=== PATIENT | female | born 1995 ===

== ENCOUNTER 2018-03-08 14:19 | Emergency (ER) | payer MEDICAID, OTHER ==
[2018-03-08 14:20] VITALS: BMI 28.3
[2018-03-08 14:36] VITALS: TEMP 98.8; O2SAT 98
--- NOTE | 2018-03-08 17:44 | CT ---
Date of service: 03/08/2018 PROCEDURE: CT HEAD WITHOUT CONTRAST. HISTORY: right facial weakness/numbness x 3 d COMPARISON: 03/26/2014 TECHNIQUE: Axial computed tomography images were obtained through the head/brain without intravenous contrast. Supplemental Coronal and Sagittal projections created and reviewed. Radiation dose: Total exam DLP = 1033.78 mGy-cm. This CT exam was performed using one or more of the following dose reduction techniques: Automated exposure control, adjustment of the mA and/or kV according to patient size, and/or use of iterative reconstruction technique. FINDINGS: HEMORRHAGE: No intracranial hemorrhage. BRAIN: No mass effect or edema. No atrophy or chronic microvascular ischemic changes. VENTRICLES: Unremarkable. No hydrocephalus. CALVARIUM: Unremarkable. PARANASAL SINUSES: Unremarkable as visualized. No significant inflammatory changes. MASTOID AIR CELLS: Unremarkable as visualized. No inflammatory changes. OTHER FINDINGS: None. IMPRESSION: No acute intracranial abnormalities. No significant findings to account for the clinical presentation.
--- NOTE | 2018-03-08 18:42 | C.PDOC ---
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 Patient denies fever, chills, or recent illnesses. Patient states that her current symptoms feel similar to prior symptoms from a similar episode in 2015. Patient states that she failed to follow-up with a neurologist at that time. Time Seen by Provider: 03/08/18 14:51 Chief Complaint (Nursing): Weakness/Neurological Deficit History Per: Patient History/Exam Limitations: no limitations Onset/Duration Of Symptoms: Days (3) Current Symptoms Are (Timing): Still Present Past Medical History Reviewed: Historical Data, Nursing Documentation, Vital Signs Vital Signs: Last Vital Signs Temp 98.8 F 03/08/18 14:30 Pulse 96 H 03/08/18 14:30 Resp 18 03/08/18 14:30 BP 107/75 03/08/18 14:30 Pulse Ox 98 03/08/18 14:30 - Medical History PMH: Fractures, Kidney Stones, Chronic Kidney Disease Other PMH: Verde's Palsy Surgical History: Tonsillectomy - [facility] Procedures APPLICATION OF SPLINT (11/13/13) OP RED-INT FIX METAC/CAR (11/26/13) REMOV INT FIX-METAC/CARP (01/20/14) Family History: States: Unknown Family Hx - Social History Hx Tobacco Use: No (DENIED) Hx Alcohol Use: No Hx Substance Use: No - Immunization History Hx Tetanus Toxoid Vaccination: Yes Hx Influenza Vaccination: No Hx Pneumococcal Vaccination: No Review Of Systems Constitutional: Negative for: Fever, Chills ENT: Positive for: Other (facial numbness right). Negative for: Mouth Pain, Throat Pain Cardiovascular: Negative for: Chest Pain Respiratory: Negative for: Cough Gastrointestinal: Negative for: Nausea, Vomiting Neurological: Positive for: Weakness (right-sided facial weakness), Numbness (right-sided facial numbness) Physical Exam - Physical Exam Appears: Non-toxic, No Acute Distress Skin: Normal Color, Warm, Dry Head: Atraumatic, Normacephalic, Other (minimal decreased wrinkling to the right forehead. ) Eye(s): bilateral: Normal Inspection, PERRL, EOMI, right: Other (can close right eye, but cannot keep it tightly shut shut) Ear(s): Bilateral: Normal Nose: No Discharge Oral Mucosa: Moist Neck: Normal, Supple Chest: Symmetrical, No Tenderness Cardiovascular: Rhythm Regular, No Murmur Respiratory: Normal Breath Sounds Extremity: Normal ROM, No Tenderness, No Swelling Neurological/Psych: Oriented x3, Normal Speech, Normal Cognition, No Normal Sensation (decreased sensation to right cheek), Other (right-sided facial droop mild) ED Course And Treatment O2 Sat by Pulse Oximetry: 98 (RA) Pulse Ox Interpretation: Normal Medical Decision Making Medical Decision Making: pt with prior hx of verde's palsy 4 yrs ago, no neuro f/u. now with 3 days numbness and weakness to right side face with decreased strength right eye closure and right facial droop, minimal dec forehead wrinkling. mild flattening of naso-labial fold. head ct neg. no other neuro findings. will treat as bells and pt advised neuro f/u needed. d/c with prednisone taper and acyclovir. Plan: CT Head Zovirax 400mg PO Prednisone 60mg PO POC Urine Disposition Counseled Patient/Family Regarding: Studies Performed, Diagnosis, Need For Followup, Rx Given - Disposition Referrals: Lane Hernandez MD [Staff Provider] - [facility] [Outside] Disposition: HOME/ ROUTINE Disposition Time: 18:47 Condition: GOOD Additional Instructions: Take acyclovir and prednisone as prescrbied. You must follow up with Medical clinic and with neurology. Return to ER for any worse symptoms. Prescriptions: Acyclovir 400 mg PO Q4 #35 tablet Prednisone 10 mg PO DAILY #36 tab Instructions: Verde's Palsy (DC) Forms: General Discharge Instructions, [facility] ([place]), School Excuse, Work Excuse - Clinical Impression Clinical Impression: Verde's palsy - PA / REFERRAL AND INFORMATION AIDE / Resident Statement MD/DO has reviewed & agrees with the documentation as recorded. - Scribe Statement The provider has reviewed the documentation as recorded by the Scribe (Paulino Castillo) All medical record entries made by the Scribe were at my direction and personally dictated by me. I have reviewed the chart and agree that the record accurately reflects my personal performance of the history, physical exam, medical decision making, and the department course for this patient. I have also personally directed, reviewed, and agree with the discharge instructions and disposition.
[2018-03-08 19:07] VITALS: BP 140/85; PULSE 84; RESP 16
== END 2018-03-08 19:06 | disposition home or self-care (01) ==
LOC: C.ER 14:19
DX: G51.0 Bell's palsy (principal)